=== PATIENT | female | born 2000 | race Caucasian/White ===

== ENCOUNTER 2020-03-21 12:13 | Emergency (ER) | payer OTHER ==
--- NOTE | 2020-03-21 12:32 | ER Document Report ---
ED ENT - General Chief Complaint: Sore Throat Stated Complaint: MOUTH PAIN Time Seen by Provider: 03/21/20 12:19 Primary Care Provider: [facility] [NO LOCAL MD] - Follow up as needed Information source: Patient Notes: Patient is a 19-year-old female comes into the emergency room complaining of a sore throat. Patient states she woke up this morning having pain with swallowing. She feels like she may have some sores in the back of her throat. States she looked at her throat and it was moderately red as well. She denies any fever no nausea no vomiting. 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 The most recent one was 1 week ago. She denies any other medical problems with exception of asthma. - HPI Patient complains to provider of: Throat problem Onset: This morning Onset/Duration: Sudden Quality of pain: Achy Severity: Moderate Pain Level: 3 Location of pain: Throat Similar symptoms previously: Yes Recently seen / treated by doctor: No - Related Data Allergies/Adverse Reactions: No Known Allergies Allergy (Unverified 03/21/20 12:21) Past Medical History - Social History Smoking Status: Never Smoker Cigarette use (# per day): No Chew tobacco use (# tins/day): No Frequency of alcohol use: None Drug Abuse: None Lives with: Family Family History: None, Reviewed & Not Pertinent Patient has homicidal ideation: No Review of Systems - Review of Systems Constitutional: No symptoms reported EENT: See HPI, Throat pain. denies: Throat swelling, Dental problem Cardiovascular: No symptoms reported Respiratory: No symptoms reported Gastrointestinal: No symptoms reported Genitourinary: No symptoms reported Female Genitourinary: No symptoms reported Musculoskeletal: No symptoms reported Skin: No symptoms reported Hematologic/Lymphatic: No symptoms reported Neurological/Psychological: No symptoms reported -: Yes All other systems reviewed and negative Physical Exam - Vital signs Vitals: Temp Pulse Resp BP Pulse Ox 98.1 F 70 18 115/70 100 03/21/20 12:17 03/21/20 12:17 03/21/20 12:17 03/21/20 12:17 03/21/20 12:17 Interpretation: Normal - Notes Notes: PHYSICAL EXAMINATION: GENERAL: Well-appearing, well-nourished and in no acute distress. HEAD: Atraumatic, normocephalic. EYES: Pupils equal round and reactive to light, extraocular movements intact, conjunctiva are normal. ENT: Examination head and upper airway showed nasal mucosa be mildly erythematous and edematous no rhinorrhea noted. Bilateral TMs normal in appearance and the retraction or bulging. Examination posterior pharynx shows bilateral tonsils slightly enlarged with moderate erythema but no exudate is seen at this time. Uvula is midline with erythema no exudate. No encroachment upon the uvula at this time. NECK: Normal range of motion, supple with mild bilateral anterior cervical lymphadenopathy noted on palpation. LUNGS: Breath sounds clear to auscultation bilaterally and equal. No wheezes rales or rhonchi. HEART: Regular rate and rhythm without murmurs NEUROLOGICAL: . Normal speech, normal gait. Normal sensory, motor exams PSYCH: Normal mood, normal affect. SKIN: Warm, Dry, normal turgor, no rashes or lesions noted. Course - Re-evaluation Re-evalutation: 03/21/20 13:02 Patient's Monospot was negative as was her rapid strep however given her presentation with the bilateral tonsillar enlargement and erythema begin to treat her for strep pharyngitis. 03/21/20 13:30 Was in the middle of discharging patient giving that her strep and mono were negative when the nurse informed me the patient wanted to go further. Evidently patient has had a sexual partner that may have been exposed to chlamydia. Patient is concerned that she may have chlamydia of the throat as well as possible vaginal. Patient is now requesting that we go ahead and test her for chlamydia of the throat as well as vaginal. She does not want a vaginal exam and has agreed to do a dirty urine instead. At this time as I explained to patient given that she has possibility of sexually transmitted disease contact we will go ahead and treat her for the gonorrhea and chlamydia. I will also would continue her treatment for the pharyngitis which is more likely in the throat at this time. 03/21/20 13:58 - Vital Signs Vital signs: Temp Pulse Resp BP Pulse Ox 98.1 F 70 18 115/70 100 03/21/20 12:17 03/21/20 12:17 03/21/20 12:17 03/21/20 12:17 03/21/20 12:17 - Laboratory Laboratory results interpreted by me: 03/21/20 13:30 Urine Blood SMALL H Discharge - Discharge Clinical Impression: Exposure to STD Pharyngitis Qualifiers: Pharyngitis/tonsillitis etiology: unspecified etiology Qualified Code(s): J02.9 - Acute pharyngitis, unspecified Disposition: HOME, SELF-CARE Instructions: Sore Throat ([facility]) Additional Instructions: Your Monospot was negative as was your strep screen at this time. Your presentation however is that of a early strep given the size of the tonsils and erythema and eventually you probably get some exudate that you seeing in your tonsils. We are going to go ahead and start you on an antibiotic given the fact that he just started today with the symptoms and probably have not had enough time to have increased amount antibodies to pick up man on a rapid strep. You will will probably not be contacted if they comes back positive given that you are being treated appropriately. You can also use warm salt water gargles which also help alleviate the discomfort. You can also use Chloraseptic spray that she get from the pharmacy. Should you have any concerns or problems goes return to ER for reevaluation. Also to note since you have become more focused on the possibilities of having gonorrhea chlamydia and possibly having a throat infection with that. We have sent out a culture but is going to take several days to come back. Also we are doing a dirty urine on you at your request to see if you have gonorrhea chlamydia. But given that you have the possibility of being exposed to a sexually transmitted disease we will go ahead and treat you. Just remember the no sexual intercourse for the next 10 days. Also most places that send out cultures and come back positive if they see you are being treated already they will not contact you to inform you of this so I highly recommend in about 7 days to you come to medical records and get the results of your test. This will assure you whether you are positive or -100% certain and if you are positive you can have your sexual partner treated as well. Remember you must wait a minimum of 7 to 10 days after treatment to have sexual intercourse. Should you have any concerns or problems he knows return to ER for reevaluation. And as also stated because your presentation is 1 of pharyngitis I am in a place you on the amoxicillin. Prescriptions: Amoxicillin 1 tab PO TID #30 tab Forms: Return to Work Referrals: [facility] [NO LOCAL MD] - Follow up as needed
[2020-03-21] MEDS ORDERED: CEFTRIAXONE INJ 250 MG VIAL IM ONE (13:16)
[2020-03-21] MEDS ORDERED: AZITHROMYCIN 250 MG TABLET PO ONE ×2 (13:21→13:42)
[2020-03-21] MEDS ORDERED: LIDOCAINE 1% INJ (10 MG/ML) 10 ML MDV INJ ONE (13:31)
[2020-03-21] MEDS ORDERED: LIDOCAINE 1% INJ-PF (10 MG/ML) 30 ML SDV ONE (13:36)
[2020-03-21 14:09] LABS: APPEARANCE,URINE CLEAR; BILIRUBIN,URINE NEGATIVE (NEGATIVE); COLOR,URINE YELLOW; GLUCOSE, URINE NEGATIVE (NEGATIVE); KETONES,URINE NEGATIVE (NEGATIVE); LEUKOCYTE ESTERASE,URINE NEGATIVE (NEGATIVE); NITRITE,URINE NEGATIVE (NEGATIVE); PROTEIN,URINE NEGATIVE (NEGATIVE); URINE SPECIFIC GRAVITY 1.011; UROBILINOGEN,URINE NEGATIVE mg/dL (<2.0)
[2020-03-21 14:19] VITALS: BP 112/72
[2020-03-21 15:24] LABS: CHLAM PCR DETECTED (NOT DETECT)
== END 2020-03-21 14:17 | disposition home or self-care (01) ==
LOC: ER 12:13
DX: Z20.2 Contact with and (suspected) exposure to infections with a predominantly sexual mode of transmission (principal); J02.9 Acute pharyngitis, unspecified; R13.10 Dysphagia, unspecified
CPT/HCPCS: 99283; 96372; 36415; 87070; 87880; 87491 ×2; 87591 ×2; 86308; 81001; J3490; J0696